=== PATIENT | female | born 1965 | race Caucasian/White ===

== ENCOUNTER 2018-05-05 20:57 | Emergency (ER) | payer SELFPAY ==
[2018-05-05 21:00] VITALS: BP 136/61; PULSE 78; TEMP 97.5
[2018-05-05] MEDS ORDERED: CLEOCIN HC150 MG/CAP PO (21:26)
[2018-05-05] MEDS ORDERED: NORCO 325 MG-101 TAB PO (23:02)
== END 2018-05-05 21:51 | disposition home or self-care (01) ==
LOC: COL.ER 20:57
DX: L03.115 Cellulitis of right lower limb (principal); F17.210 Nicotine dependence, cigarettes, uncomplicated